=== PATIENT | female | born 1950 | race Caucasian/White ===

== ENCOUNTER 2022-03-14 20:10 | Observation (INO) | payer MEDICARE ==
[2022-03-14] MEDS ORDERED: NITROGLYCERIN SL TABS 0.4 MG TAB SUBLINGUAL STA (20:29)
--- NOTE | 2022-03-14 20:33 | ED ---
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 She also has some nausea with it. She's shortly thereafter this patient she has some retrosternal chest pressure related the initial pain as being sharp dull achy and radiated to both arms more sort on the right than the left. Additionally she does have chronic pain but this is lasting much longer than usual. (Yohan Rodriguez) - Related Data Allergies Allergy/AdvReac Type Severity Reaction Status Date / Time povidone-iodine Allergy Rash/Hives Verified 03/14/22 20:19 [From Betadine] Review of Systems ROS Other: All systems not noted in ROS Statement are negative. <Yohan Rodriguez - Last Filed: 03/14/22 20:53> ROS Other: All systems not noted in ROS Statement are negative. <Néstor Tovar - Last Filed: 03/15/22 02:23> ROS Statement: Those systems with pertinent positive or pertinent negative responses have been documented in the HPI. EKG Findings - EKG Results: EKG: interpreted by ERMD (Sinus rhythm of 74. Interval 163 QRS duration 124 QT/QTC/408/435 possible right ventricular conduction delay with anterior fascicular block and minimal voltage criteria for LVH nonspecific ST configuration) <Yohan Rodriguez - Last Filed: 03/14/22 20:53> Past Medical History Past Medical History: Cancer, Hypertension, Thyroid Disorder Additional Past Medical History / Comment(s): myodisplastic syndrome, lumpectomy with radiation History of Any Multi-Drug Resistant Organisms: None Reported Past Surgical History: Hysterectomy Additional Past Surgical History / Comment(s): cataracts, Past Psychological History: No Psychological Hx Reported Smoking Status: Former smoker Past Alcohol Use History: Occasional Past Drug Use History: None Reported <Yohan Rodriguez - Last Filed: 03/14/22 20:53> General Exam General appearance: alert, anxious Head exam: Present: atraumatic, normocephalic, normal inspection Eye exam: Present: normal appearance, PERRL, EOMI. Absent: scleral icterus, conjunctival injection, periorbital swelling ENT exam: Present: normal exam, mucous membranes moist Neck exam: Present: normal inspection, full ROM, other (No stridor JVD or bruits). Absent: tenderness, meningismus, lymphadenopathy Respiratory exam: Present: normal lung sounds bilaterally, decreased breath sounds. Absent: respiratory distress, wheezes, rales, rhonchi, stridor, chest wall tenderness Cardiovascular Exam: Present: regular rate, normal rhythm, normal heart sounds. Absent: systolic murmur, diastolic murmur, rubs, gallop, clicks GI/Abdominal exam: Present: soft, normal bowel sounds. Absent: distended, tenderness, guarding, rebound, rigid Extremities exam: Present: normal inspection, full ROM, normal capillary refill. Absent: tenderness, pedal edema, joint swelling, calf tenderness Back exam: Present: normal inspection Neurological exam: Present: alert, oriented X3, CN II-XII intact Psychiatric exam: Present: normal affect, normal mood Skin exam: Present: warm, dry, intact, normal color. Absent: rash <Yohan Rodriguez - Last Filed: 03/14/22 20:53> - General Exam Comments Initial Comments: This is a well-developed well-nourished awake alert oriented 4 female (Yohan Rodriguez) Course <MichaelYohan - Last Filed: 03/14/22 20:53> Vital Signs 03/14/22 03/14/22 03/14/22 20:37 20:39 22:23 Temperature Pulse Rate 78 119 H 67 Respiratory 20 15 15 Rate Blood Pressure 127/77 126/69 123/87 O2 Sat by Pulse 97 95 97 Oximetry 03/14/22 03/15/22 03/15/22 23:59 00:33 01:30 Temperature 97.9 F Pulse Rate 70 73 70 Respiratory 15 15 15 Rate Blood Pressure 121/76 112/84 123/73 O2 Sat by Pulse 94 L 93 L 94 L Oximetry 03/15/22 03/15/22 01:40 02:03 Temperature 98.4 F 98.7 F Pulse Rate 69 73 Respiratory 18 20 Rate Blood Pressure 121/72 144/90 O2 Sat by Pulse 96 96 Oximetry - Reevaluation(s) Reevaluation #1: 03/14/22 20:50 The patient's midsternal chest discomfort did resolve after the patient was given nitroglycerin. Labs and x-rays are pending at this time the patient's care will be endorsed to Dr. Tovar at our shift change. 03/14/22 20:50 (Repeat EKG is ordered (Yohan Rodriguez) Chest Pain MDM <Néstor Tovar - Last Filed: 03/15/22 02:23> - MDM Was signed out to me pending workup. Presents with acute on chronic substernal chest pain. Lasted slightly longer at home. Resolved upon arrival. States it is her typical pain she experiences. Has had a prior thorough workup, hitting stress testing, echo's. Cardiology previously is told her they believe it is related to her myelodysplastic syndrome as well as her chronic anemia that she requires transfusions for under 8. She presents emergency department for further evaluation. Nitro tablet was given while the patient was here in the department, and had no effect on her pain. Initial workup was remarkable for a chronic anemia of 7.2, which typically requires transfusion at this level. D- dimer was just slightly elevated for her age at 0.78. Magnesium is slightly decreased to 1.5 and will be replenished. Troponin is undetectable. EKG showed no signs of acute ischemia, isolated T-wave inversion in lead III. No prior EKG for comparison. Vital signs remain within normal limits. I updated the patient. Due to her elevated d-dimer did recommend we obtain a CT angiogram to rule out PE. She was in agreement with this plan. We also transfuse her 1 unit of blood. She has been here multiple hours already, we will repeat a troponin at this time as well. She was in agreement this plan.Goal is hopefully to discharge the patient home if the repeat troponin is within normal limits a she has no active chest pain at this time. She was in agreement this plan. There was a long delay in obtaining results for troponin due to laboratory issues. Repeat troponin was minimally elevated above baseline at 0.040. CT angio revealed no evidence of pulmonary embolism. No pulmonary mass. I discussed the results with the patient. I updated her that she has an elevated troponin at this point. She has remained asymptomatic throughout her stay in the department. I would like to admit her to the observation with telemetry at this point. They were in agreement with this plan. She is receiving her 1 unit of packed blood cells. We'll continue to trend her troponins and have cardiology evaluate her. I spoke with the admitting physician, observation leaf conditioner helper Dr. Flanagan who accepted the patient. Cardiology was consulted. (Néstor Tovar) Disposition <Yohan Rodriguez - Last Filed: 03/14/22 20:53> Time of Disposition: 01:35 <Néstor Tovar - Last Filed: 03/15/22 02:23> Clinical Impression: Elevated troponin, Atypical chest pain, Chronic anemia, Myelodysplasia (myelodysplastic syndrome) Disposition: ADMITTED IP TO THIS HOSP Condition: Stable Referrals: CHARLOTTE SUAZO MD [Primary Care Provider] - 1-2 days
[2022-03-14 20:51] LABS: Anisocytosis Moderate; Basophils # (A) 0.1 k/uL (0-0.2); Basophils % (A) 3 %; Eosinophils # (A) 0.2 k/uL (0-0.7); Eosinophils % (A) 5 %; HCT 22.2 % (34.0-46.0); HGB 7.2 gm/dL (11.4-16.0); Lymphocytes # (A) 1.6 k/uL (1.0-4.8); Lymphocytes % (A) 30 %; MCH 32.1 pg (25.0-35.0); MCHC 32.3 g/dL (31.0-37.0); MCV 99.3 fL (80.0-100.0); Macrocytosis Moderate; Mean Platelet Volume 12.3; Monocytes # (A) 0.5 k/uL (0-1.0); Monocytes % (A) 9 %; Neutrophils # (A) 2.6 k/uL (1.3-7.7); Neutrophils % (A) 50 %; Platelet Count 219 k/uL (150-450); RBC 2.23 m/uL (3.80-5.40); RDW 21.6 % (11.5-15.5); WBC 5.2 k/uL (3.8-10.6)
[2022-03-14 21:04] LABS: INR 0.9 (<1.2); Partial Thromboplastin Time 22.3 sec (22.0-30.0); Prothrombin Time 9.8 sec (9.0-12.0)
[2022-03-14 21:16] LABS: Albumin 4.3 g/dL (3.5-5.0); Calcium 9.5 mg/dL (8.4-10.2); Magnesium 1.5 mg/dL (1.6-2.3); Potassium 4.2 mmol/L (3.5-5.1); Total Bilirubin 0.3 mg/dL (0.2-1.3); Total Protein 6.3 g/dL (6.3-8.2)
--- NOTE | 2022-03-14 21:40 | XR ---
EXAMINATION TYPE: XR chest 2V DATE OF EXAM: 03/14/2022 COMPARISON: NONE HISTORY: Chest pain TECHNIQUE: 2 views FINDINGS: Heart is normal. Lungs are clear of consolidation. There is some mild atelectasis left lung base. There are no hilar masses. Bony thorax is intact. There are chest leads. IMPRESSION: There is some mild atelectasis at the left lung base. Normal heart.
[2022-03-14] MEDS ORDERED: methylPREDNISolone SOD SUCCI 125 MG/2 ML VIAL IV STA (22:29)
[2022-03-14] MEDS ORDERED: diphenhydrAMINE 50 MG/ML 1 ML VIAL IVP STA (22:29)
[2022-03-14] MEDS ORDERED: FAMOTIDINE 20 MG/2 ML VIAL IV STA (22:29)
--- NOTE | 2022-03-14 23:17 | CT ---
EXAMINATION TYPE: CT chest angio for PE DATE OF EXAM: 03/14/2022 COMPARISON: Renal view HISTORY: pe CT DLP: 406.2 mGycm Automated exposure control for dose reduction was used. CONTRAST: Performed with IV Contrast, patient injected with 70 mL of Isovue 370. Images obtained from the thoracic inlet to the diaphragm with the IV contrast. 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 Aortic arch is intact. There is no mediastinal adenopathy. There are no hilar masses. Heart size is normal. No pericardial effusion. The lungs are clear of consolidation. No evidence of a pulmonary mass. There is normal contrast opacification of the pulmonary arteries. No filling defect. The thoracic spi ne is intact. Sternum is intact. No rib fracture. The upper abdominal soft tissues are intact. There is 2.5 cm cyst in the superior right lobe of the liver. IMPRESSION: No evidence of pulmonary embolism. No suspicious pulmonary mass.
[2022-03-14] MEDS ORDERED: MAGNESIUM SULFATE-D5W PMX 1 GM in DEXTROSE/WATER 1 100ML.BAG IVPB ONE (23:53)
[2022-03-15] MEDS ORDERED: NALOXONE 0.4 MG/ML 1 ML VIAL IV PRN (02:21)
--- NOTE | 2022-03-15 03:22 | P.HPIM ---
History of Present Illness H&P Date: 03/15/22 Chief Complaint: chest pain 71 year old female with mylodysplastic syndrome , requiring frequent blood transfusion patient is at her baseline status of health, she reports occasional episodes of chest pain , usually triggered by heavy activity. she had underwent cardiac w orkup in the past including stress test a year ago that was reportedly was unermarkable. cardiology at the time blamed her symptoms on anemia due to MDS. tonight patient woke up and went to the bathroom then the kitchen when suddenly started experiencing chest pain retrosternal , severe pain , lasted more than 15-30 min associated with nausea, hot flushes , SOB,and dizziness. she denies any associated palpitations. usually these episodes lasts 15 min and resolved on its own, however, this time , she describes the episode as very hard compared to what she experienced inthe past. she otherwise denies any GI bleeding, abd pain , vomiting, diarrhea, urinary symptoms , fever, or chills. denies any URI symptoms , denies any recent travel or hospital stay in the ED , workup showed elevated d dimer , CTA no acute PE. patient given 1 unit of blood for hemoglobin less than 8 Mg being replaced in the ED. patient currently is asymptomatic Review of Systems Pertinent positives as noted in HPI. All other systems were reviewed and are negative Past Medical History Past Medical History: Cancer, Hypertension, Thyroid Disorder Additional Past Medical History / Comment(s): myodisplastic syndrome, lumpectomy with radiation History of Any Multi-Drug Resistant Organisms: None Reported Past Surgical History: Hysterectomy Additional Past Surgical History / Comment(s): cataracts, Past Psychological History: No Psychological Hx Reported Smoking Status: Former smoker Past Alcohol Use History: Occasional Past Drug Use History: None Reported - Past Family History faily Family Medical History: Coronary Artery Disease (CAD) Medications and Allergies Allergies Allergy/AdvReac Type Severity Reaction Status Date / Time povidone-iodine Allergy Rash/Hives Verified 03/14/22 20:19 [From Betadine] Physical Exam Vitals: Vital Signs Temp Pulse Resp BP Pulse Ox 03/15/22 02:10 98.1 F 63 18 144/90 95 03/15/22 02:03 98.7 F 73 20 144/90 96 03/15/22 01:40 98.4 F 69 18 121/72 96 03/15/22 01:30 97.9 F 70 15 123/73 94 L 03/15/22 00:33 73 15 112/84 93 L 03/14/22 23:59 70 15 121/76 94 L 03/14/22 22:23 67 15 123/87 97 03/14/22 20:39 119 H 15 126/69 95 03/14/22 20:37 78 20 127/77 97 Intake and Output 03/14/22 03/14/22 03/15/22 14:59 22:59 06:59 Intake Total 10 0 Balance 10 0 Intake: IV 10 Invasive Line 1 10 Blood Product 0 Rc As-1 Unit 0 [id number] Other: Weight 86.183 kg Constitutional: No acute distress, conversant, pleasant Eyes: Anicteric sclerae, moist conjunctiva, Pupils equal round reactive to light ENMT: NC/AT Oropharynx clear, no erythema, or exudates Neck: Supple, no masses, or JVD No carotid bruits No thyromegaly Lungs: Clear to auscultation Clear to percussion Normal respiratory effort, no accessory muscle use Cardiovascular: Heart regular in rate and rhythm, No murmurs, gallops, or rubs No peripheral edema Abdominal: Soft Nontender, no guarding, rebound or rigidity Abdomen moving with respiration Normoactive bowel sounds No hepatomegaly, No splenomegaly No palpable mass No abdominal wall hernia noted Skin: Normal temperature, tone, texture, turgor No induration No subcutaneous nodules No rash, lesions No ulcers Extremities: No digital cyanosis No clubbing Pedal pulses intact and symmetrical Radial pulses intact and symmetrical No calf tenderness Psychiatric: Alert and oriented to person, place and time Appropriate affect fair judgement Neuro Muscles Strength 5/5 in all 4 extremities Sensation to light touch grossly present throughout Cranial nerves II-XII grossly intact No focal sensory deficits Lymphatics: no palpable cervical or supraclavicular , or inguinal lymph nodes Results CBC & Chem 7: 03/14/22 20:19 03/14/22 20:19 Labs: Abnormal Lab Results - Last 24 Hours (Table) 03/14/22 03/14/22 03/14/22 Range/Units 20:19 20:19 20:19 RBC 2.23 L (3.80-5.40) m/uL Hgb 7.2 L (11.4-16.0) gm/dL Hct 22.2 L (34.0-46.0) % RDW 21.6 H (11.5-15.5) % D-Dimer 0.78 H (<0.60) mg/L FEU Carbon Dioxide 20 L (22-30) mmol/L BUN 22 H (7-17) mg/dL Creatinine 1.13 H (0.52-1.04) mg/dL Glucose 131 H (74-99) mg/dL Magnesium 1.5 L (1.6-2.3) mg/dL Troponin I (0.000-0.034) ng/mL Crossmatch 03/14/22 03/14/22 Range/Units 20:19 23:59 RBC (3.80-5.40) m/uL Hgb (11.4-16.0) gm/dL Hct (34.0-46.0) % RDW (11.5-15.5) % D-Dimer (<0.60) mg/L FEU Carbon Dioxide (22-30) mmol/L BUN (7-17) mg/dL Creatinine (0.52-1.04) mg/dL Glucose (74-99) mg/dL Magnesium (1.6-2.3) mg/dL Troponin I 0.040 H* (0.000-0.034) ng/mL Crossmatch See Detail Assessment and Plan Assessment: atypical chest pain rule out ACS EKG T wave inversion lead III, no old EKG to compare CXR no acute pathology elevated d dimer , CTA no acute PE 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 2/2 myelodysplastic syndrome denies GI bleeding blood transfusion 1 unit hypothyroid unknown home dose DVT PPX heparin sc tid full code
[2022-03-15] MEDS: ASPIRIN 325 MG TAB PO SCH ×2 (04:12→11:04)
[2022-03-15 08:04] LABS: African American GFR (CKD) 61 (>60 ml/min/1.73 sqM); Anion Gap 13 mmol/L; Blood Urea Nitrogen 22 mg/dL (7-17); Calcium 9.4 mg/dL (8.4-10.2); Carbon Dioxide 20 mmol/L (22-30); Chloride 105 mmol/L (98-107); Glucose 165 mg/dL (74-99); Non-African American GFR(CKD) 53 (>60 ml/min/1.73 sqM); Potassium 4.9 mmol/L (3.5-5.1); Sodium 138 mmol/L (137-145)
[2022-03-15 08:38] LABS: Anisocytosis Moderate; HCT 25.4 % (34.0-46.0); HGB 8.5 gm/dL (11.4-16.0); MCHC 33.3 g/dL (31.0-37.0); Macrocytosis Moderate; Mean Platelet Volume 11.6; Platelet Count 250 k/uL (150-450); RBC 2.57 m/uL (3.80-5.40); RDW 21.8 % (11.5-15.5)
--- NOTE | 2022-03-15 09:25 | P.CRDCN ---
History of Present Illness Consult date: 03/15/22 Consult reason: chest pain History of present illness: This is Jayesh Olmos NP, I'm dictating on behalf of Dr. Coelho's H&P and A&P The patient was interviewed and examined. HPI: Patient is a pleasant 71-year-old female who initially presented to the hospital with chest pain. Patient states that yesterday, after walking 50 feet to a chair, she experienced crushing chest pain that lasted longer than normal. Patient does report a history of chronic chest pain, but states that it normally lasts only 15 seconds, and if she crosses her arms over her chest that usually helps this subsided. She states yesterday this pain was sudden, crushing in nature, and lasted for minutes. She was given nitroglycerin which had no effect on the pain. Patient was noted to have a slight elevation in her troponins, which have since returned to normal. We have been consulted for further evaluation of the chest pain. Patient has a history significant for myelodysplastic syndrome, hypertension, and thyroid disorder. This morning the patient reports that she does not have any more chest pain at this time. Review of the EKG from the emergency department does demonstrate a normal EKG with some T-wave inversions in leads 3, and aVF. Patient reports that she has a amusement park worker in [place] who she has been following. She states recent testing that has been completed did not demonstrate any issue with her heart. ROS: [No fever, chills, or rigors] [no cough, phlegm, or expectoration] [no nausea, vomiting, or diarrhea] [no hematuria, dysuria] [no musculoskelatal complaints] [no strokes or seizures] [no skin lesions] EXAMINATION: GENERAL: Well-appearing, well-nourished and in no acute distress. NECK: Supple without JVD or thyromegaly. LUNGS: Breath sounds clear to auscultation bilaterally. Respiration equal and unlabored. No wheezes, rales or rhonchi. HEART: Regular rate and rhythm without murmurs, rubs or gallops. S1 and S2 he elvira. EXTREMITIES: Normal range of motion, no edema. No clubbing or cyanosis. Peripheral pulses intact and strong. REVIEW OF LABS, ECG & MEDICAL DATA: LABS: White count 5.0, hemoglobin 8.5, platelets 219, sodium 138, potassium 4.9, BUN 22, creatinine 1.05, calcium 9.4, magnesium 1.5, troponin-less than 0.012, 0.040, 0.037, 0.0-1, BNP 127 EKG: Normal sinus rhythm with T-wave inversions in leads 3, aVF IMAGING: Chest x-ray dated 03/14/2020 to demonstrate some mild atelectasis at the left lung base, normal heart. CTA of the chest dated 03/14/2022 demonstrates no evidence of pulmonary embolism, no suspicious pulmonary mass. VITALS: Temp 97.7, respirations 16, blood pressure 132/79, O2 saturation 95% on room air IMPRESSION: Acute on chronic chest pain Mild cardiac enzyme elevation T-wave inversions in leads 3, aVF on EKG. Unknown if this is new or chronic. PLAN: Continue home cardiac medications, if any. Echocardiogram Please obtain records from Dr. Gomes (sp?) in [place], the patient's amusement park worker. Continue telemetry. EKG tomorrow morning. Further recommendations based on the patient's clinical course. Thank you for the consult and allowing us to participate in the care of this patient. Past Medical History Past Medical History: Cancer, Hypertension, Thyroid Disorder Additional Past Medical History / Comment(s): myodisplastic syndrome, lumpectomy with radiation History of Any Multi-Drug Resistant Organisms: None Reported Past Surgical History: Hysterectomy Additional Past Surgical History / Comment(s): cataracts, Past Psychological History: No Psychological Hx Reported Smoking Status: Former smoker Past Alcohol Use History: Occasional Past Drug Use History: None Reported - Past Family History faily Family Medical History: Coronary Artery Disease (CAD) Medications and Allergies Home Medications Medication Instructions Recorded Confirmed Type Cholecalciferol [Vitamin D3 (25 50 mcg PO DAILY 03/15/22 03/15/22 History Mcg = 1000 Iu)] Cyanocobalamin (Vitamin B-12) 5,000 mcg PO DAILY 03/15/22 03/15/22 History [Vitamin B-12] Levothyroxine Sodium [Synthroid] 75 mcg PO BARBER@0800 03/15/22 03/15/22 History Levothyroxine Sodium [Synthroid] 150 mcg PO MOTUWETHFRSA@0800 03/15/22 03/15/22 History Losartan Potassium 100 mg PO DAILY 03/15/22 03/15/22 History Magnesium Time Release Cap(Uknown) 1 cap PO QID 03/15/22 03/15/22 History Pantoprazole Sodium [Protonix] 40 mg PO DAILY 03/15/22 03/15/22 History Allergies Allergy/AdvReac Type Severity Reaction Status Date / Time povidone-iodine Allergy Rash/Hives Verified 03/15/22 09:08 [From Betadine] Physical Exam Vitals: Vital Signs Temp Pulse Resp BP BP Pulse Ox 03/15/22 07:00 97.7 F 16 132/79 95 03/15/22 06:28 64 19 110/67 97 03/15/22 04:07 98.1 F 67 18 111/69 96 03/15/22 02:10 98.1 F 63 18 144/90 95 03/15/22 02:03 98.7 F 73 20 144/90 96 03/15/22 01:40 98.4 F 69 18 121/72 96 03/15/22 01:30 97.9 F 70 15 123/73 94 L 03/15/22 00:33 73 15 112/84 93 L 03/14/22 23:59 70 15 121/76 94 L 03/14/22 22:23 67 15 123/87 97 03/14/22 20:39 119 H 15 126/69 95 03/14/22 20:37 78 20 127/77 97 Intake and Output 03/14/22 03/15/22 03/15/22 22:59 06:59 14:59 Intake Total 10 310 Balance 10 310 Intake: IV 10 Invasive Line 1 10 Blood Product 310 Rc As-1 Unit 310 [id number] Other: Weight 86.183 kg Results 03/15/22 06:47 03/15/22 06:47 Cardiac Enzymes 03/14/22 03/14/22 03/14/22 Range/Units 20:19 20:19 23:59 AST 24 (14-36) U/L Troponin I <0.012 0.040 H* (0.000-0.034) ng/mL 03/15/22 03/15/22 Range/Units 02:59 06:47 AST (14-36) U/L Troponin I 0.037 H* 0.021 (0.000-0.034) ng/mL Coagulation 03/14/22 Range/Units 20:19 PT 9.8 (9.0-12.0) sec APTT 22.3 (22.0-30.0) sec CBC 03/14/22 03/15/22 Range/Units 20:19 06:47 WBC 5.2 5.0 (3.8-10.6) k/uL RBC 2.23 L 2.57 L (3.80-5.40) m/uL Hgb 7.2 L 8.5 L (11.4-16.0) gm/dL Hct 22.2 L 25.4 L (34.0-46.0) % Plt Count 219 (150-450) k/uL Comprehensive Metabolic Panel 03/14/22 03/15/22 Range/Units 20:19 06:47 Sodium 139 138 (137-145) mmol/L Potassium 4.2 4.9 (3.5-5.1) mmol/L Chloride 104 105 (98-107) mmol/L Carbon Dioxide 20 L 20 L (22-30) mmol/L BUN 22 H 22 H (7-17) mg/dL Creatinine 1.13 H 1.05 H (0.52-1.04) mg/dL Glucose 131 H 165 H (74-99) mg/dL Calcium 9.5 9.4 (8.4-10.2) mg/dL AST 24 (14-36) U/L ALT 34 (4-34) U/L Alkaline Phosphatase 98 (38-126) U/L Total Protein 6.3 (6.3-8.2) g/dL Albumin 4.3 (3.5-5.0) g/dL Current Medications Generic Name Dose Route Start Last Admin Trade Name Freq PRN Reason Stop Dose Admin Aspirin 325 mg 03/15/22 03:08 03/15/22 04:12 Aspirin 325 Mg Tab PO 325 mg DAILY KRISTOPHER Administration Atorvastatin Calcium 20 mg 03/15/22 09:00 Atorvastatin 20 Mg Tab PO DAILY KRISTOPHER Heparin Sodium (Porcine) 5,000 unit 03/15/22 08:00 Heparin Sodium,Porcine/Pf 5,000 Unit/0.5 Ml Syringe SQ Q8HR KRISTOPHER Naloxone HCl 0.2 mg 03/15/22 02:21 Naloxone 0.4 Mg/Ml 1 Ml Vial IV Q2M PRN Opioid Reversal Intake and Output 03/14/22 03/15/22 03/15/22 22:59 06:59 14:59 Intake Total 10 310 Balance 10 310 Intake: IV 10 Invasive Line 1 10 Blood Product 310 Rc As-1 Unit 310 [id number] Other: Weight 86.183 kg 03/15/22 06:47 03/15/22 06:47
[2022-03-15 10:21] LABS: Large Platelets Present; Tear Drop Cells Present
[2022-03-15] MEDS: HEPARIN SODIUM,PORCINE/PF 5,000 UNIT/0.5 ML SYRINGE SQ SCH ×3 (11:04→20:58)
--- NOTE | 2022-03-15 11:34 | P.PN ---
Progress Note - Text Hospitalist Interval Note Patient seen and examined at bedside. Currently chest pain-free. Reports that she is feeling improved. Her is at bedside and all questions answered. Vital signs reviewed General: non toxic, no distress, appears at stated age Derm: warm, dry Head: atraumatic, normocephalic, symmetric Eyes: EOMI, no lid lag, anicteric sclera Mouth: no lip lesion, mucus membranes moist Cardiovascular: S1S2 reg, no murmur, positive posterior tibial pulse bilateral, Lungs: CTA bilateral, no rhonchi, no rales , no accessory muscle use Ext: no gross muscle atrophy, no edema, no contractures Neuro: CN II-XI grossly intact, no focal neuro deficits Psych: Alert, oriented, appropriate affect Assessment/Plan: Chest pain Anemia associated with myelodysplastic syndrome -Plan is for echocardiogram in a.m. Monitoring to [facility]. -NPO after midnight in case of stress test as needed This is an update note for patient , for full note on 03/15/22 see H and P. There is no charge associated with this note.
[2022-03-15 12:04] LABS: Chol/HDL Ratio 1.97 Ratio; LDL Cholesterol,Calculated 49.6 mg/dL (0.0-131.0); VLDL Calculation 18.22 mg/dL (5.00-40.00)
[2022-03-15] MEDS: ATORVASTATIN 20 MG TAB PO SCH (13:18)
[2022-03-16 05:27] VITALS: TEMP 97.6
[2022-03-16] MEDS ORDERED: PANTOPRAZOLE 40 MG TABLET PO SCH (07:30)
[2022-03-16 07:50] VITALS: BP 115/73; PULSE 63; RESP 18
[2022-03-16] MEDS ORDERED: LEVOTHYROXINE 75 MCG TAB PO SCH (08:00)
[2022-03-16] MEDS ORDERED: LOSARTAN 50 MG TAB PO SCH (09:00)
[2022-03-16] MEDS: HEPARIN SODIUM,PORCINE/PF 5,000 UNIT/0.5 ML SYRINGE SQ SCH (09:17)
[2022-03-16] MEDS: ASPIRIN 325 MG TAB PO SCH (09:18)
[2022-03-16] MEDS: ATORVASTATIN 20 MG TAB PO SCH (09:18)
[2022-03-16 09:34] LABS: African American GFR (CKD) 52.8 (60.0-200.0); Anion Gap 9.2 mmol/L (10.00-18.00); BUN/Creat Ratio 20.17 Ratio (12.00-20.00); Non-African American GFR(CKD) 45.6 (60.0-200.0); Potassium 4.4 mmol/L (3.5-5.5)
[2022-03-16 09:48] LABS: Basophils # (A) 0.18 X 10*3/uL (0.00-0.10); Basophils % (A) 2.8 %; Eosinophils # (A) 0.22 X 10*3/uL (0.04-0.35); Eosinophils % (A) 3.4 %; HCT 21.9 % (37.2-46.3); HGB 7.2 g/dL (12.0-15.0); Immature Grans, Automated 0.5 %; Lymphocytes # (A) 1.49 X 10*3/uL (0.90-5.00); Lymphocytes % (A) 22.9 %; MCH 32.9 pg (27.0-32.0); MCHC 32.9 g/dL (32.0-37.0); Monocytes # (A) 0.93 X 10*3/uL (0.20-1.00); Monocytes % (A) 14.3 %; NRBC Per 100 WBC 0 /100 WBCS (0.0-0.0); Neutrophils # (A) 3.66 X 10*3/uL (1.80-7.70); Neutrophils % (A) 56.1 %; Platelet Count 208 X 10*3/uL (140-440); RBC 2.19 X 10*6/uL (4.10-5.20); RDW 20.6 % (11.5-14.5); WBC 6.51 X 10*3/uL (4.50-10.00)
--- NOTE | 2022-03-16 10:32 | P.PN ---
Subjective This is a 71-year-old female past medical history of hypertension, myelodysplastic syndrome, hypothyroidism, former smoker, dyslipidemia. She follows with Dr. Coyle. We have been asked to see patient secondary to 2 elevated troponins. Patient initially presents emergency plan with complaints of episode of chest discomfort. She has no further chest discomfort. She stated that it normally lasts only 15 seconds, and if she crosses her arms over her chest that usually helps this subsided. She states yesterday this pain was sudden, crushing in nature, and lasted for minutes. She was given nitroglycerin which had no effect on the pain. Patient was noted to have a slight elevation in her troponins, which have since returned to normal. Patient seen and examined at bedside, no acute distress. She denies any chest pain, shortness of breath, lightheadedness or dizziness. Vital signs are stable. Blood pressure 115/73, heart rate 63, afebrile, oxygen saturation 94% on room air. Telemetry reviewed patient is maintaining sinus mechanism heart rates in the 6070s. GENERAL: Well-appearing, well-nourished and in no acute distress. NECK: Supple without JVD or thyromegaly. LUNGS: Breath sounds clear to auscultation bilaterally. Respiration equal and unlabored. No wheezes, rales or rhonchi. HEART: Regular rate and rhythm without murmurs, rubs or gallops. S1 and S2 heard. EXTREMITIES: Normal range of motion, no edema. No clubbing or cyanosis. Peripheral pulses intact. ASSESSMENT Acute and chronic chest pain, resolved. Mildly elevated troponin with unclear significance Anemia Acute on chronic kidney disease Myelodysplastic syndrome Hypothyroidism Hypertension Dyslipidemia Former tobacco use PLAN 2D echocardiogram ordered From a cardiology perspective, no further inpatient workup indicated at this time. Recommend continuing home cardiac medications and follow up with her primary social service director Dr. Coyle in 1-2 weeks. Nurse Practitioner note has been reviewed, I agree with a documented findings and plan of care. Patient was seen and examined. Objective - Vital Signs Vital signs: Vital Signs Temp 97.6 F 03/16/22 07:20 Pulse 63 03/16/22 07:20 Resp 18 03/16/22 07:20 BP 115/73 03/16/22 07:20 Pulse Ox 94 L 03/16/22 07:20 FiO2 Intake & Output 09/11/2903/16/22 03/16/22 18:59 06:59 18:59 Intake Total 118 Balance 118 Weight 86.183 kg Intake: Oral 118 Other: Voiding Method Toilet # Voids 1 3 - Labs CBC & Chem 7: 03/16/22 06:35 03/16/22 06:35 Labs: Abnormal Lab Results - Last 24 Hours (Table) 03/15/22 03/15/22 03/16/22 Range/Units 06:47 06:47 06:35 RBC 2.19 L (4.10-5.20) X 10*6/uL Hgb 7.2 L (12.0-15.0) g/dL Hct 21.9 L (37.2-46.3) % MCV 100.0 H (80.0-97.0) fL MCH 32.9 H (27.0-32.0) pg RDW 20.6 H (11.5-14.5) % MPV 13.0 H (9.5-12.2) fL Basophils # 0.18 H (0.00-0.10) X 10*3/uL Anion Gap (10.00-18.00) mmol/L Est GFR (CKD-EPI)AfAm (60.0-200.0) Est GFR (CKD-EPI)NonAf (60.0-200.0) BUN/Creatinine Ratio (12.00-20.00) Ratio Glucose (70-110) mg/dL Hemoglobin A1c 6.8 H (0.0-6.0) % HDL Cholesterol 70.20 H (40.00-60.00) mg/dL 03/16/22 Range/Units 06:35 RBC (4.10-5.20) X 10*6/uL Hgb (12.0-15.0) g/dL Hct (37.2-46.3) % MCV (80.0-97.0) fL MCH (27.0-32.0) pg RDW (11.5-14.5) % MPV (9.5-12.2) fL Basophils # (0.00-0.10) X 10*3/uL Anion Gap 9.20 L (10.00-18.00) mmol/L Est GFR (CKD-EPI)AfAm 52.8 L (60.0-200.0) Est GFR (CKD-EPI)NonAf 45.6 L (60.0-200.0) BUN/Creatinine Ratio 20.17 H (12.00-20.00) Ratio Glucose 115 H (70-110) mg/dL Hemoglobin A1c (0.0-6.0) % HDL Cholesterol (40.00-60.00) mg/dL
--- NOTE | 2022-03-16 11:19 | P.DS ---
Providers Date of admission: 03/15/22 02:21 Expected date of discharge: 03/16/22 Attending physician: Samuel Flanagan MD Consults: 03/15/22 02:21 Consult Physician Routine Consulting Provider: [facility] Consult Reason/Comments: elevated troponin Do you want consulting provider notified?: Yes Primary care physician: CHARLOTTE SUAZO MD Hospital Course: Chest Pain Hypomagnesemia Hypothyroid 71 year old female with mylodysplastic syndrome, requiring frequent blood transfusion presented for exertional chest pain. In the ED , workup showed elevated d dimer , CTA did not show acute PE. Patient given 1 unit of blood for hemoglobin less than 8 Mg replaced in the ED. With these interventions, patient's chest pain resolved. Patient was seen and cleared by cardiology to have outpatient follow up for her exertional chest pain. Patient refused echocardiogram while in house. She did have a mild elevation of troponin, and was therefore started on aspirin, statin on discharge. Her previous cardiac work up with stress test, done 1 year ago for similar symptoms, was negative. Gen: awake, alert HEENT: normocephalic, atraumatic, good hearing acuity, moist mucous membranes Resp: good air exchange, breathing comfortably with no accessory muscle use CVS: good distal perfusion x 4, GI: soft, NTTP, ND : no SPT, no CVAT, hall catheter not present MSK: no pitting edema, no clubbing Neuro: non-focal, moving all extremities Psych: cooperative, euthymic mood Patient Condition at Discharge: Good Plan - Discharge Summary Discharge Rx Participant: No New Discharge Prescriptions: New Atorvastatin [Lipitor] 20 mg PO DAILY #30 tab Aspirin 81 mg PO DAILY #30 tab Continue Pantoprazole Sodium [Protonix] 40 mg PO DAILY Cyanocobalamin (Vitamin B-12) [Vitamin B-12] 5,000 mcg PO DAILY Losartan Potassium 100 mg PO DAILY Magnesium Time Release Cap(Uknown) 1 cap PO QID Levothyroxine Sodium [Synthroid] 75 mcg PO BARBER@0800 Levothyroxine Sodium [Synthroid] 150 mcg PO MOTUWETHFRSA@0800 Cholecalciferol [Vitamin D3 (25 Mcg = 1000 Iu)] 50 mcg PO DAILY Discharge Medication List Cholecalciferol [Vitamin D3 (25 Mcg = 1000 Iu)] 50 mcg PO DAILY 03/15/22 [History] Cyanocobalamin (Vitamin B-12) [Vitamin B-12] 5,000 mcg PO DAILY 03/15/22 [History] Levothyroxine Sodium [Synthroid] 75 mcg PO BARBER@0803/15/22 [History] Levothyroxine Sodium [Synthroid] 150 mcg PO MOTUWETHFRSA@0800 03/15/22 [History] Losartan Potassium 100 mg PO DAILY 03/15/22 [History] Magnesium Time Release Cap(Uknown) 1 cap PO QID 03/15/22 [History] Pantoprazole Sodium [Protonix] 40 mg PO DAILY 03/15/22 [History] Aspirin 81 mg PO DAILY #30 tab 03/16/22 [Rx] Atorvastatin [Lipitor] 20 mg PO DAILY #30 tab 03/16/22 [Rx] Follow up Appointment(s)/Referral(s): CHARLOTTE SUAZO MD [Primary Care Provider] - 1-2 days Patient Instructions/Handouts: Angina (ED), Dyspnea (DC) Activity/Diet/Wound Care/Special Instructions: Patient is to follow up with her [facility] and will have an echo done in there office. And follow up with her known surgical services asst Discharge Disposition: HOME SELF-CARE
[2022-03-21] MEDS ORDERED: LEVOTHYROXINE 75 MCG TAB PO SCH (08:00)
== END 2022-03-16 11:12 | disposition home or self-care (01) ==
LOC: EC 20:10 → 6NMEDSUR 03-15 02:21
PROVIDERS: ADMIT Internal Medicine; ATTEND Internal Medicine
DX: R07.89 Other chest pain (principal); D63.8 Anemia in other chronic diseases classified elsewhere; E83.42 Hypomagnesemia; E03.9 Hypothyroidism, unspecified; D46.9 Myelodysplastic syndrome, unspecified; R79.89 Other specified abnormal findings of blood chemistry; I12.9 Hypertensive chronic kidney disease with stage 1 through stage 4 chronic kidney disease, or unspecified chronic kidney disease; N18.9 Chronic kidney disease, unspecified; E78.5 Hyperlipidemia, unspecified; J98.11 Atelectasis; G89.29 Other chronic pain; Z79.890 Hormone replacement therapy; Z79.899 Other long term (current) drug therapy; Z91.048 Other nonmedicinal substance allergy status; Z85.9 Personal history of malignant neoplasm, unspecified; Z92.3 Personal history of irradiation; Z90.710 Acquired absence of both cervix and uterus; Z98.49 Cataract extraction status, unspecified eye; Z87.891 Personal history of nicotine dependence; Z82.49 Family history of ischemic heart disease and other diseases of the circulatory system
CPT/HCPCS: 96372 ×3; 36430; 96365; 96375; 99285; 36415; 93005; 86900; 86901; 85379; 83880; 80061; 80053; 80048 ×2; 83690; 83735; 84484 ×2; 85025 ×2; 85027; 85610; 85730; 86850; 86920; 83036; 71046; 71275; G0378 ×2; P9016; J1200; J2930; J3475; Q9967; J1644 ×2; 96374